=== PATIENT | male | born 1955 | race Caucasian/White ===

== ENCOUNTER → 2017-03-24 | Outpatient (CLI) | payer OTHER ==
[~2017-03-24] MED LIST: ACETAMINOPHEN325 M1 PO; ADULT LOW DOSE81 MG PO; AZOR 5-40 MG T1 EACH PO; CREON 10 CAPSUL1 CA1 PO; DIFICID200 MG PO; FLAGYL500 MG PO; FLONASE 0.05%50 MCG INH; HYDROCODON-ACE1 EAC7 PO; LOPRESSOR 50 MG50 M1 PO; LOTREL 5-40 MG1 EACH PO; ONDANSETRON HCL4 M3 PO; OXYCODONE-APAP1 EAC4 PO; PANTOPRAZOLE SO40 M1 PO; PRIMIDONE50 MG PO; RESTORIL15 MG PO; UNKNOWN BP MED
== END ==
LOC: CAT 10:01
DX: Z13.6 Encounter for screening for cardiovascular disorders (principal)

== ENCOUNTER 2017-09-21 13:23 | Emergency (ER) | payer BC ==
[~2017-09-21] VITALS: Ht 170.2 cm; Wt 85.3 kg
[2017-09-21] MEDS ORDERED: TRIMETHOPRIM /P10 M1 OPHTHALMIC (14:17)
[2017-09-21 14:39] VITALS: BP 120/78
== END 2017-09-21 14:39 | disposition home or self-care (01) ==
LOC: ER 13:23
DX: S05.01XA Injury of conjunctiva and corneal abrasion without foreign body, right eye, initial encounter (principal); I10 Essential (primary) hypertension; K21.9 Gastro-esophageal reflux disease without esophagitis; G47.33 Obstructive sleep apnea (adult) (pediatric); Z90.49 Acquired absence of other specified parts of digestive tract; Z88.5 Allergy status to narcotic agent; X58.XXXA Exposure to other specified factors, initial encounter; Y93.89 Activity, other specified; Y92.89 Other specified places as the place of occurrence of the external cause; Y99.8 Other external cause status